=== PATIENT | male | born 1970 | race Caucasian/White ===

== ENCOUNTER 2024-03-29 06:36 | Outpatient (CLI) | payer OTHER, SELFPAY ==
--- NOTE | 2024-03-29 07:49 | W.ANESCHARGE ---
Anesthesia Charges Start Date/Time Anesthesia Start Date: 03/29/24 Anesthesia Start Time: 07:18 Stop Date/Time Anesthesia Stop Date: 03/29/24 Anesthesia Stop Time: 07:47
--- NOTE | 2024-03-29 08:30 | W.ANESCHARGE ---
Anesthesia Charges Start Date/Time Anesthesia Start Date: 03/29/24 Anesthesia Start Time: 07:18 Stop Date/Time Anesthesia Stop Date: 03/29/24 Anesthesia Stop Time: 07:47
== END 2024-03-29 06:37 | disposition home or self-care (01) ==
LOC: OP CLINIC 06:38
PROVIDERS: PCP Physician Assistant Medical; Visit Provider Internal Medicine Gastroenterology
DX: Z12.11 Encounter for screening for malignant neoplasm of colon (principal); D12.2 Benign neoplasm of ascending colon; Z80.0 Family history of malignant neoplasm of digestive organs
CPT/HCPCS: 00811; 45380; 88305; J2704